=== PATIENT | female | born 1950 | race Caucasian/White ===

== ENCOUNTER 2016-12-08 04:03 | Emergency (ER) | payer MEDICARE, OTHER ==
[~2016-12-08 04:03] MED LIST: BYSTOLIC5 MG PO; CALTRA600D PO; CIP5 PO; DITRO5 PO; ELIQUIS 5 MG TAB5 MG PO; FLEX PO; FLONASE NAS; FLORASTOR250 MG PO; HALF81 PO; LIPITOR40 PO; MOBIC15 MG PO; NEUR300 PO; PROTONIX PO; PROZ10 PO; REQUIP1 PO; TEARS PLUS OPH; TRAZ50 PO; ULTRAM50 PO; VANCOMYCIN LIQUID PO; ZOFRAN4 PO
[2016-12-20] MEDS ORDERED: K500 PO (15:48)
[2016-12-20] MEDS ORDERED: CALTRA600D PO (15:49)
[2016-12-20] MEDS ORDERED: GLUCCHONDR PO (15:49)
[2016-12-20] MEDS ORDERED: NORCO1 TA1 PO (15:49)
[2016-12-20] MEDS ORDERED: ASAB PO (15:49)
[2016-12-20] MEDS ORDERED: PROZ10 PO (15:50)
[2016-12-20] MEDS ORDERED: REQUIP5 PO (15:51)
[2016-12-20] MEDS ORDERED: REQUIP1 PO (15:51)
[2016-12-20] MEDS ORDERED: FLEX PO (15:52)
[2016-12-20] MEDS ORDERED: PROTONIX PO (15:52)
[2016-12-20] MEDS ORDERED: ZOFRAN4 PO (15:53)
[2016-12-20] MEDS ORDERED: ELIQUIS 5 MG TAB5 MG PO (15:54)
[2016-12-20] MEDS ORDERED: LIPITOR40 PO (15:54)
[2016-12-20] MEDS ORDERED: ULTRAM50 PO (15:54)
[2016-12-20] MEDS ORDERED: BYSTOLIC5 MG PO (15:55)
[2016-12-20] MEDS ORDERED: DITRO5 PO ×2 (15:56→16:00)
[2016-12-20] MEDS ORDERED: FLONASE NAS (15:56)
[2016-12-20] MEDS ORDERED: BACTROINT TOP (16:00)
[2016-12-20] MEDS ORDERED: NEUR300 PO ×2 (16:01→16:02)
[2016-12-20] MEDS ORDERED: TRAZ50 PO (16:02)
[2016-12-20] MEDS ORDERED: OTC ALLERGY MED PO (16:04)
== END 2016-12-08 04:15 | disposition home or self-care (01) ==
LOC: ER 04:03
DX: S90.32XA Contusion of left foot, initial encounter (principal); I10 Essential (primary) hypertension; I48.91 Unspecified atrial fibrillation; Z86.73 Personal history of transient ischemic attack (TIA), and cerebral infarction without residual deficits; F41.9 Anxiety disorder, unspecified; F32.9 Major depressive disorder, single episode, unspecified; Z90.710 Acquired absence of both cervix and uterus; K21.9 Gastro-esophageal reflux disease without esophagitis; Z88.8 Allergy status to other drugs, medicaments and biological substances; Z79.899 Other long term (current) drug therapy; Z79.82 Long term (current) use of aspirin; X58.XXXA Exposure to other specified factors, initial encounter
CPT/HCPCS: 73630-LT; 99283